=== PATIENT | female | born 1945 | race Caucasian/White ===

== ENCOUNTER → 2016-10-24 | Outpatient (CLI) | payer MEDICARE ==
[~2016-10-24] MED LIST: ASPIRIN PO; CALCIUM 600 +1 EAC3 PO; CELEXA PO; FISH OIL500 MG PO; HYZAAR 100-12.51 TAB PO; LIPITOR PO; METFORMIN PO; ONE DAILY MULTI1 TA3 PO; TEMAZEPAM PO; TOPROL XL PO
== END | disposition home or self-care (01) ==
LOC: CECH 13:29
DX: I34.0 Nonrheumatic mitral (valve) insufficiency (principal); I51.7 Cardiomegaly
CPT/HCPCS: 93306

== ENCOUNTER → 2017-02-08 | Outpatient (CLI) | payer MEDICARE ==
--- NOTE | ~2017-02-08 | CT137 ---
[facility] A Service of [facility] & [facility] RADIOLOGY TEXT RESULTS PATIENT: SAMEER PATEL LOCATION: [facility] : 49 UNIT #: [id number] AGE: [address]: Antoni Franklin MD SEX: F ORDER DR: [id number] [facility] [address] [place], [place] [address] [id number] O MR#: [id number] [facility] #: [id number] NAME: SAMEER PATEL : 1945 SEX: F STUDY DATE/TIME: 02/08/2017 09:32 UNIT: [facility] ROOM: STUDY DESCRIPTION: CT Lung Screening annual Attending Physician: Antoni Franklin M.D. Referring Physician: Antoni Franklin M.D. Ordering Physician: Antoni Franklin M.D. Primary Care Physician: Antoni Franklin M.D. MEDICAL IMAGING REPORT This report is preliminary unless electronic signature is present EXAM CT chest, lung cancer screening; 02/08/2017, 0932 hours. CLINICAL HISTORY 71-year-old woman who was a former smoker of 3 months who smoked one pack per day for 41 years. Screening for lung carcinoma. COMPARISON CT lung cancer screening exam 01/03/2016. TECHNIQUE Helical low-dose noncontrasted CT images were obtained from the thoracic inlet through the adrenal glands. Sagittal and coronal reconstructions were performed. Total exam DLP 102 mGy-cm. This CT exam was performed with one or more of the following radiation dose reduction techniques: automatic exposure control, adjustment of mA and/or kV according to patient size, and iterative reconstruction. This exam was performed in a facility that meets the criteria for the LD-CT screening program. The data regarding this exam was submitted to an approved registry. The order for this exam indicates that it came as a result of a lung cancer screening counseling and shared decision-making visit that included all of the elements required of such a visit. The radiologist interpreting this exam meets the CMS criteria for the LD-CT lung cancer screening program. FINDINGS 1. Images through the thoracic inlet demonstrate no thyroid lesion or adenopathy. 2. Images through the chest demonstrate normal caliber aorta. The patient does have calcifications at the aortic valve plane and apparent calcifications at the leaflets which can be associated with aortic stenosis. The ascending aorta, however, is normal in caliber STS. [facility] A Service of [facility] & [facility] RADIOLOGY TEXT RESULTS PATIENT: SAMEER PATEL LOCATION: [facility] : [birth year] UNIT #: [id number] AGE: [address]: Antoni Franklin MD SEX: F ORDER DR: measuring up to 3 cm. Coronary calcifications are present. Cardiac chambers and pericardium are normal. There is a moderate sized hiatal hernia. 3. Lung window images demonstrate mild underlying emphysema centrilobular in nature. There are no blebs or bullae. There is no suspicious nodule. No significant change from 01/03/2016. 4. Thoracic spine demonstrates moderate spurring in the mid and lower levels. IMPRESSION 1. Negative lung cancer screening study. No change from 01/03/2016. 2. Patient is noted to have coronary artery calcifications as well as calcifications at the aortic valve plane aortic leaflets which can be associated with aortic stenosis. Consider evaluation for aortic stenosis. 3. LungRADS category 1-S negative lung cancer screening CT. Continued annual low-dose screening CT in 12 months is recommended per protocol. Correlate with physical exam. Possible echocardiogram for presence of aortic stenosis. Dictated by... Monse Dickerson M.D. THIS IS AN ELECTRONICALLY VERIFIED REPORT Monse Dickerson M.D. at 02/10/2017 8:41 AM Philipp TD: 02/09/2017 13:50 JOB #: [id number] MEDICAL IMAGING REPORT Page 1 of 1 COPY
== END | disposition home or self-care (01) ==
LOC: CCAT 09:07
DX: Z87.891 Personal history of nicotine dependence (principal)
CPT/HCPCS: G0297